=== PATIENT | male | born 1995 | race Caucasian/White ===

== ENCOUNTER 2019-12-20 17:10 | Emergency (ER) | payer BC ==
[2019-12-20 17:31] VITALS: BP 117/78; PULSE 95
[2019-12-20] MEDS ORDERED: Amoxicillin/Clavulanate K 875-125 MG Tab PO STA (17:34)
[2019-12-20] MEDS ORDERED: Acetaminophen 500 MG Tab PO ONE (17:34)
[2019-12-20] MEDS ORDERED: Ibuprofen 800 MG Tab PO ONE (17:34)
--- NOTE | 2019-12-20 17:41 | EDM.PDOC ---
ED HPI GENERAL MEDICAL PROBLEM - General Chief Complaint: Bite:Animal, Insect Stated Complaint: DOG BITE Time Seen by Provider: 12/20/19 17:15 Source of Information: Reports: Patient History Limitations: Reports: No Limitations - History of Present Illness INITIAL COMMENTS - FREE TEXT/NARRATIVE: Patient presented to the ED because of a dog bite. He got bitten by his 2 dogs on the right arm and hand He have 2 puncture wound on the dorsum of the rt hand and ventral aspect of the rt arm. He is able to extend and flex his fingers and wrist but with pain. right hand Pain Score (Numeric/FACES): 4 - Related Data Allergies Allergy/AdvReac Type Severity Reaction Status Date / Time No Known Allergies Allergy Verified 05/02/15 16:51 Home Meds: Home Meds Lisdexamfetamine [Vyvanse] 04/14/15 [History] Sertraline HCl 04/14/15 [History] buPROPion HCl [Bupropion Xl] 04/14/15 [History] traZODone HCl [Trazodone HCl] 04/14/15 [History] Amoxicillin/Clavulanate K [Augmentin 875-125 MG] 1 tab PO BID #20 tablet 12/20/19 [Rx] Ibuprofen 800 mg PO TID PRN #30 tablet 12/20/19 [Rx] Past Medical History - Past Health History Medical/Surgical History: Denies Medical/Surgical History ED ROS GENERAL - Review of Systems Review Of Systems: See Below Constitutional: Reports: No Symptoms HEENT: Reports: No Symptoms Respiratory: Reports: No Symptoms Cardiovascular: Reports: No Symptoms Endocrine: Reports: No Symptoms GI/Abdominal: Reports: No Symptoms : Reports: No Symptoms Musculoskeletal: Reports: No Symptoms Skin: Reports: Wound Neurological: Reports: No Symptoms Psychiatric: Reports: No Symptoms ED EXAM, ANIMAL BITE - Physical Exam Exam: See Below Exam Limited By: No Limitations General Appearance: Alert, No Apparent Distress Ears: Normal External Exam, Normal Canal Nose: Normal Inspection, Nasal Swelling Throat/Mouth: Normal Inspection, Normal Lips Head: Atraumatic, Normocephalic Neck: Normal Inspection, Supple, Non-Tender Respiratory/Chest: No Respiratory Distress, Lungs Clear Cardiovascular: Normal Peripheral Pulses, Regular Rate, Rhythm GI/Abdominal: Normal Bowel Sounds, Soft, Non-Tender Back Exam: Normal Inspection, Full Range of Motion Extremities: Normal Inspection, Normal Range of Motion Skin Exam: Normal Color, Other (1 cm punture wound on the right hand and forearm) Course - Vital Signs Text/Narrative:: UTD with his immunization Augementin 875 mg PO x1 Ibuprofen 800 mg with tylenol 1000 mg po x1 Last Recorded V/S: Last Vital Signs Temp 36.2 C 12/20/19 17:10 Pulse 95 12/20/19 17:10 Resp 16 12/20/19 17:10 BP 117/78 12/20/19 17:10 Pulse Ox 99 12/20/19 17:10 - Orders/Labs/Meds Meds: Medications Discontinued Medications Generic Name Dose Route Start Last Admin Trade Name Freq PRN Reason Stop Dose Admin Acetaminophen 1,000 mg 12/20/19 17:34 12/20/19 17:41 Tylenol Extra Strength PO 12/20/19 17:35 1,000 mg ONETIME ONE Administration Amoxicillin/Clavulanate Potassium 1 tab 12/20/19 17:34 12/20/19 17:40 Augmentin 875 Mg/125 Mg PO 12/20/19 17:35 1 tab NOW STA Administration Ibuprofen 800 mg 12/20/19 17:34 12/20/19 17:41 Motrin PO 12/20/19 17:35 800 mg ONETIME ONE Administration Departure - Departure Time of Disposition: 17:40 Disposition: Home, Self-Care 01 Condition: Good Clinical Impression: Dog bite - Discharge Information Prescriptions: Amoxicillin/Clavulanate K [Augmentin 875-125 MG] 1 tab PO BID #20 tablet Ibuprofen 800 mg PO TID PRN #30 tablet PRN Reason: Pain Instructions: Animal Bite, Adult, [id number] Referrals: Mino Whitten MD [Primary Care Provider] - Forms: ED Department Discharge Additional Instructions: Please read discharge instructions on animal bite No need to apply an antibiotic ointment because you are taking one Take Augmentin 875 mg twice daily for 10 days(take it with food) Ibuprofen 800 mg with tylenol 1000 mg every 8 hours as needed for pain Follow up as needed Sepsis Event Note (ED) - Evaluation Sepsis Screening Result: No Definite Risk - Focused Exam Vital Signs: Vital Signs Temp Pulse Resp BP Pulse Ox 12/20/19 17:10 36.2 C 95 16 117/78 99
== END 2019-12-20 17:48 | disposition home or self-care (01) ==
LOC: FB.ED 17:10
DX: S51.851A Open bite of right forearm, initial encounter (principal); S61.451A Open bite of right hand, initial encounter; Z79.899 Other long term (current) drug therapy; W54.0XXA Bitten by dog, initial encounter
CPT/HCPCS: 99283; A9270